=== PATIENT | male | born 1995 | race Caucasian/White ===

== ENCOUNTER 2018-11-14 20:20 | Emergency (ER) | payer OTHER ==
[~2018-11-14] VITALS: Ht 175.3 cm; Wt 68.0 kg
[2018-11-14 20:22] VITALS: BP 140/92
== END 2018-11-14 20:43 | disposition home or self-care (01) ==
LOC: ER 20:20
DX: T40.2X1A Poisoning by other opioids, accidental (unintentional), initial encounter (principal); Z98.890 Other specified postprocedural states; Y92.89 Other specified places as the place of occurrence of the external cause